=== PATIENT | female | born 1975 | race Caucasian/White ===

== ENCOUNTER 2019-05-20 05:45 | Day surgery (SDC) | payer BC ==
[~2019-05-20] VITALS: Ht 167.6 cm; Wt 96.4 kg
[~2019-05-20 05:45] MED LIST: CIPRO 500MG TA500 MG PO; EFFEXOR-XR150 MG PO; FLAGYL500 MG PO; MULTI VITAMINS1 TAB PO; NORCO 325 MG-51 TAB PO; WELLBUTRIN 75MG75 MG PO; ZOFRAN ODT4 MG PO
[2019-05-20 06:24] VITALS: BP 144/99; PULSE 97; TEMP 98.3
[2019-05-20] MEDS ORDERED: PREPH RC (06:30)
[2019-05-20] MEDS ORDERED: COLACE 100100 MG/CAP PO (06:30)
[2019-05-20] MEDS ORDERED: PERCOCET 325 MG1 TA2 PO (08:12)
[2019-05-20 08:40] VITALS: BP 124/73; PULSE 103; TEMP 98.5
--- NOTE | 2019-05-20 08:40 | NUR ---
Pt to [facility] [place] [facility] via cart from PACU. Pt drowsy, but awake. Pt denies pain or nausea. Pt laying on left lateral side. ABD pad and EZ briefs are clean, dry and intact. Apple juice and applesauce given per pt request. Will continue to monitor. Call light within reach.
[2019-05-20 08:55] VITALS: BP 120/72; PULSE 101
--- NOTE | 2019-05-20 08:55 | NUR ---
Pt tolerating food and fluids without difficulties. Will continue to monitor. Call light within reach.
[2019-05-20 09:10] VITALS: BP 126/75; PULSE 103
--- NOTE | 2019-05-20 09:10 | NUR ---
Pt continues to rest. Will continue to monitor.
--- NOTE | 2019-05-20 09:25 | NUR ---
Discharge instructions reviewed. Pt voices understanding. IV site discontinued with all parts intact. Pt up to restroom. Voids without difficulties. Pt back to room to dress. Call light within reach.
--- NOTE | 2019-05-20 09:50 | NUR ---
Pt escorted to private car via wheel chair. Pt accompanied home by her .
== END 2019-05-20 09:50 | disposition home or self-care (01) ==
LOC: SDCO 05:45
DX: K64.5 Perianal venous thrombosis (principal); K64.1 Second degree hemorrhoids; K21.9 Gastro-esophageal reflux disease without esophagitis; F32.9 Major depressive disorder, single episode, unspecified; F41.9 Anxiety disorder, unspecified; Z90.49 Acquired absence of other specified parts of digestive tract; Z80.8 Family history of malignant neoplasm of other organs or systems; Z82.3 Family history of stroke; Z82.49 Family history of ischemic heart disease and other diseases of the circulatory system; Z88.0 Allergy status to penicillin; Z79.899 Other long term (current) drug therapy
CPT/HCPCS: J0690; J1100; J1885; J2405; J2704; J3010; J7120